=== PATIENT | male | born 1975 | race Caucasian/White ===

== ENCOUNTER 2018-05-27 08:26 | Emergency (ER) | payer BC ==
[~2018-05-27] VITALS: Ht 177.8 cm; Wt 91.7 kg
[2018-05-27 08:30] VITALS: BP 142/97
[2018-05-27] MEDS ORDERED: BUPR150T8 PO (09:04)
[2018-05-27] MEDS ORDERED: DULO-31 PO (09:04)
[2018-05-27 10:38] LABS: CLARITY,URINE CLEAR (Clear); COLOR,URINE YELLOW (Yellow); GLUCOSE, URINE NEGATIVE (Neg); KETONES,URINE NEGATIVE (Neg); LEUKOCYTE ESTERASE ,URINE NEGATIVE (Neg); NITRITES, URINE NEGATIVE (Neg); OCCULT BLOOD,URINE NEGATIVE (Neg); PROTEIN,URINE NEGATIVE (Neg); UROBILINOGEN,URINE 0.2 E.U/dL (0.2-1.0)
[2018-05-27 10:42] LABS: UA COLLECTION TYPE NON-SPECIFIED
[2018-05-27 10:54] LABS: URINE AMPHETAMINE SCREEN NEGATIVE (Neg); URINE BARBITUATE SCREEN NEGATIVE (Neg); URINE BENZODIAZEPINES SCREEN NEGATIVE (Neg); URINE CANNABINOID SCREEN NEGATIVE (Neg); URINE COCAINE SCREEN NEGATIVE (Neg); URINE METHADONE SCREEN NEGATIVE (Neg); URINE OPIATE SCREEN NEGATIVE (Neg); URINE PHENCYCLIDINE SCREEN NEGATIVE (Neg)
[2018-05-27 11:30] LABS: ALANINE AMINOTRANSFERASE 37 U/L (12-78); ALBUMIN 3.8 G/DL (3.4-5.0); ALBUMIN/GLOBULIN RATIO 1.1 (1.1-1.5); ALKALINE PHOSPHATASE 108 IU/L (46-116); ANION GAP 8 (8-16); ASPARTATE AMINO TRANSFERASE 18 U/L (10-37); BILIRUBIN,TOTAL 0.7 MG/DL (0.1-1.0); BLOOD UREA NITROGEN 12 MG/DL (7-18); BUN/CREATININE RATIO 9.8 (5.4-32.0); CHLORIDE 103 MMOL/L (99-107); CREATININE 1.23 MG/DL (0.60-1.10); GLUCOSE 124 MG/DL (70-104); POTASSIUM 3.9 MMOL/L (3.5-5.1); SODIUM 138 MMOL/L (135-145); TOTAL CARBON DIOXIDE 26.8 MMOL/L (24-32); TOTAL PROTEIN 7.4 G/DL (6.4-8.2); eGFR 64 ML/MIN
[2018-05-27 11:39] LABS: BASOPHILS % (AUTO) 0.5 % (0-1); EOSINOPHILS % (AUTO) 0.3 % (0-6); HEMATOCRIT 45.1 % (42.0-52.0); HEMOGLOBIN 15.5 g/dl (14.0-17.9); LYMPHOCYTES # (AUTO) 1.8 X10'3 (1.1-4.8); LYMPHOCYTES % (AUTO) 19.4 % (21-51); MEAN CORPUSCULAR HEMOGLOBIN 30.8 PG (27.0-31.0); MEAN CORPUSCULAR HGB CONC 34.3 % (33.0-36.5); MEAN PLATELET VOLUME 7.4 FL (7.4-10.4); MONOCYTES # (AUTO) 0.6 X10'3 (0-0.9); MONOCYTES % (AUTO) 5.9 % (2-12); NEUTROPHILS % (AUTO) 73.9 % (42-75); PLATELET COUNT 386 X10'3 (140-440); RED BLOOD COUNT 5.01 X10'6 (4.70-6.10); WHITE BLOOD COUNT 9.4 X10'3 (4.5-11.0)
[2018-05-27 11:40] LABS: ETHANOL < 0.010 GM/DL (0.0-0.010)
== END 2018-05-27 14:26 ==
LOC: ER 08:27
DX: F32.9 Major depressive disorder, single episode, unspecified (principal); R45.851 Suicidal ideations; Z79.899 Other long term (current) drug therapy
CPT/HCPCS: 36415; 80053; 80305; 80320; 81003; 84443; 85025; 99285

== ENCOUNTER 2018-05-27 12:41 | Inpatient (IN) | payer BC ==
[~2018-05-27] VITALS: Ht 172.7 cm; Wt 90.3 kg
[~2018-05-27 12:41] MED LIST: BUPR150T8 PO; DULO-31 PO
[2018-05-27] MEDS ORDERED: acetaminophen 325mg tablet PO PRN ×2 (14:35)
[2018-05-27] MEDS ORDERED: magnesium hydroxide 30ml (MOM) UD suspension PO PRN (14:35)
[2018-05-27] MEDS ORDERED: mag hydrox/Alum hydrox/simeth 30ml oral suspension PO PRN (14:35)
[2018-05-27] MEDS: buPROPion 75mg tablet PO SCH (14:42)
[2018-05-27 16:39] VITALS: BP 141/91
[2018-05-27 20:00] VITALS: BP 145/82
[2018-05-27] MEDS: duloxetine 30mg CAPSULE.DR PO SCH (20:12)
[2018-05-28 08:00] VITALS: BP 130/84
[2018-05-28] MEDS: duloxetine 30mg CAPSULE.DR PO SCH ×2 (08:05→13:05)
[2018-05-28] MEDS: buPROPion 75mg tablet PO SCH ×2 (08:05→13:06)
[2018-05-28 11:49] LABS: HEMOGLOBIN A1C 6.6 % (4.5-6.2)
[2018-05-28 11:58] LABS: CHOL/HDL RATIO 4.4 (0.00-4.99); CHOLESTEROL 159 MG/DL (0-200); HDL CHOLESTEROL 36 MG/DL (35-60); LDL CHOLESTEROL 109 MG/DL (50-100); TRIGLYCERIDES 125 MG/DL (20-135)
[2018-05-28] MEDS: lurasidone 20mg tablet PO SCH (18:43)
[2018-05-28 19:22] VITALS: BP 136/90
[2018-05-29 08:00] VITALS: BP 128/85
[2018-05-29] MEDS: buPROPion 75mg tablet PO SCH ×2 (08:25→13:23)
[2018-05-29] MEDS: duloxetine 30mg CAPSULE.DR PO SCH ×2 (08:25→13:23)
[2018-05-29] MEDS: lurasidone 20mg tablet PO SCH (18:55)
[2018-05-29 19:00] VITALS: BP 147/87
[2018-05-30] MEDS: buPROPion 75mg tablet PO SCH ×2 (08:17→12:50)
[2018-05-30] MEDS: duloxetine 30mg CAPSULE.DR PO SCH ×2 (08:17→12:50)
[2018-05-30 08:41] VITALS: BP 117/87
[2018-05-30] MEDS: lurasidone 20mg tablet PO SCH (18:07)
[2018-05-30 20:15] VITALS: BP 153/87
[2018-05-31 08:00] VITALS: BP 125/88
[2018-05-31] MEDS: buPROPion 75mg tablet PO SCH ×2 (08:12→12:45)
[2018-05-31] MEDS: duloxetine 30mg CAPSULE.DR PO SCH ×2 (08:12→12:45)
[2018-05-31] MEDS ORDERED: LURA60TA2 PO (13:41)
[2018-05-31] MEDS ORDERED: DULO60CA64 PO (13:41)
[2018-05-31] MEDS ORDERED: BUPR75TA12 PO (13:41)
== END 2018-05-31 16:10 | disposition home or self-care (01) | DRG 885 ==
LOC: ADULT MH 12:41
PROVIDERS: ADMIT Psychiatry & Neurology Psychiatry; ATTEND Psychiatry & Neurology Psychiatry
DX: F33.9 Major depressive disorder, recurrent, unspecified (principal); R45.851 Suicidal ideations; F41.9 Anxiety disorder, unspecified; F60.9 Personality disorder, unspecified; K21.9 Gastro-esophageal reflux disease without esophagitis; Z80.0 Family history of malignant neoplasm of digestive organs; Z81.8 Family history of other mental and behavioral disorders; Z79.899 Other long term (current) drug therapy
CPT/HCPCS: 36415; 80061; 83036; 87070; 99285